=== PATIENT | female | born 1995 | race Two or more races ===

== ENCOUNTER → 2024-10-09 | Outpatient (CLI) | payer OTHER ==
[2024-10-09 10:59] LABS: Basophils # (auto) 0 10 ^3/uL (0-0.2); Basophils % (auto) 0.8 % (0.0-2.0); Eosinophils # (auto) 0.2 10 ^3/uL (0-0.8); Eosinophils % (auto) 2.6 % (0.0-7.0); Hematocrit 40.8 % (36.0-46.0); Lymphocytes # (auto) 1.7 10 ^3/uL (0.4-5.4); Mean Corpuscular Hemoglobin 29.1 pg (28.0-32.0); Mean Corpuscular Hgb Conc. 34.2 g/dL (32.0-36.0); Mean Corpuscular Volume 85.1 fL (80.0-100.0); Monocytes # (auto) 0.5 10 ^3/uL (0-1.3); Monocytes % (auto) 8.7 % (0.0-12.0); Neutrophils # (auto) 3.7 10 ^3/uL (1.6-8.6); Neutrophils % (auto) 59.9 % (37.0-80.0); Platelet Count (auto) 306 10^3/uL (140-450); Red Blood Cells 4.79 10^6/uL (4.0-5.20); Red Cell Distribution Width 12.7 % (11.8-14.3); White Blood Cell 6.1 10^3/uL (4.4-10.8)
[2024-10-09 11:32] LABS: Alanine Aminotransferase 23 U/L (7-40); Anion Gap 8 (5-15); Aspartate Aminotransferase 17 U/L (13-40); BUN/Creatinine Ratio 11.1 (10.0-20.0); Bilirubin, Total 0.7 mg/dL (0.2-1.0); Calcium 9.9 mg/dL (8.7-10.4); Carbon Dioxide 25 mmol/L (20-31); Chloride 104 mmol/L (98-107); Glucose 85 mg/dL (74-106); Potassium 3.7 mmol/L (3.5-5.1); Sodium 137 mmol/L (136-145)
[2024-10-09 11:33] LABS: Total Protein 7.4 g/dL (5.7-8.2)
[2024-10-09 11:35] LABS: Thyroid Stimulating Hormone 1.39 uIU/mL (0.55-4.78)
[2024-10-09 11:43] LABS: Beta HCG, Quantitative 3466.2 mIU/mL (1.5-4.2)
[2024-10-09 11:44] LABS: Albumin 4.9 g/dL (3.2-4.8); Alkaline Phosphatase 44 U/L (46-116); Blood Urea Nitrogen 8 mg/dL (9-23)
== END | disposition home or self-care (01) ==
LOC: LAB 10:35
PROVIDERS: ATTEND Nurse Practitioner Family
DX: Z32.01 Encounter for pregnancy test, result positive (principal)
CPT/HCPCS: 36415; 80053; 84443; 84702; 85025

== ENCOUNTER → 2024-12-11 | Outpatient (CLI) | payer OTHER ==
[2024-12-11 13:59] LABS: Iron 92 ug/dL (50-170)
[2024-12-11 14:02] LABS: % Iron Saturation 22.8 % (15-50); Total Iron Binding Capacity 403 ug/dL (250-425)
[2024-12-11 14:28] LABS: RUBELLA Positive
[2024-12-12 11:07] LABS: Varicella Zoster IgG Antibody Reactive (Non Reactive)
[2024-12-12 13:07] LABS: Chlamydia Trachomatis, NAA Negative (Negative); Neisseria gonorrhoeae, NAA Negative (Negative)
== END | disposition home or self-care (01) ==
LOC: LAB 12:56
PROVIDERS: ATTEND Student in an Organized Health Care Education/Training Program
DX: O23.40 Unspecified infection of urinary tract in pregnancy, unspecified trimester (principal); Z31.430 Encounter of female for testing for genetic disease carrier status for procreative management; Z36.0 Encounter for antenatal screening for chromosomal anomalies; N39.0 Urinary tract infection, site not specified; Z3A.00 Weeks of gestation of pregnancy not specified
CPT/HCPCS: 36415; 82306; 82728; 83036; 83540; 83550; 86703; 86705; 86762; 86780; 86787; 86850; 86900; 86901; 87086; 87902

== ENCOUNTER 2025-02-13 11:25 | Outpatient (CLI) | payer OTHER | END 2025-02-13 17:00 | disposition home or self-care (01) | LOC: LAB 11:25 | PROVIDERS: ATTEND Obstetrics & Gynecology | DX: Z34.00 Encounter for supervision of normal first pregnancy, unspecified trimester (principal); R76.8 Other specified abnormal immunological findings in serum; Z3A.00 Weeks of gestation of pregnancy not specified | CPT/HCPCS: 36415; 86780 ==

== ENCOUNTER 2025-06-07 10:52 | Observation (INO) | payer OTHER ==
[2025-06-07] MEDS ORDERED: PREN-96 PO (12:15)
--- NOTE | 2025-06-07 12:34 | DVH ---
BIOPHYSICAL PROFILE HISTORY: Term TECHNIQUE: Multiple real-time grayscale sonographic images through the gravid uterus of the fetus wi th duplex Doppler color flow. FINDINGS: BIOPHYSICAL PROFILE: breathing score: 2 movement score: 2 tone score: 2 Quantitative KVNG score: 2 Total score: 8 out of 8 Single live intrauterine . heart rate of 127 beats per minute. Cephalic lie. Placent a anteriorly positioned. KVNG 9.2 cm. IMPRESSION: Biophysical profile score: 8 out of 8
--- NOTE | 2025-06-07 16:29 | DVHDS2 ---
Discharge Summary Date of Admission Jun 07, 2025 at 10:52 Date of Discharge: Jun 07, 2025 Admitting Diagnosis 40+ week intrauterine here for routine monitoring and biophysical profile both performed with reassuring heart tones as well as BPP. Wounds: None Labs/Diagnostic Data: None Brief Hx & Hospital Course: Patient had BPP NST very reassuring Operations or Procedures None Condition at Discharge: Good Final Diagnosis/Problems List 40 week intrauterine reassuring Discharge Disposition: Home SNF Discharge Will this Physician continue t: No Discharge Instruct/Medications Diet: Regular Activity: No Restrictions, As Tolerated Follow Up/Referral: As scheduled for routine NST BPP kick counts labor precautions Medications: None Scheduled Vit W/ Ferrous Fumara ( One Daily), 1 TAB PO DAILY, (Reported) Discharge Statement: "Patient was advised to return to the ER or call 911 if any headaches, dizziness, shortness of breath, chest pain, abdominal pain, bleeding, fevers, or worsening of medical condition. Patient was counseled about treatment plan, medications, possible side effects, patientverbalized understanding. All questions were answered to the best of my ability. This discharge took greater then 30 minutes in planning, reviewing documentation, counseling the patient, and discussing with other team members." ASSESSMENT ASSESSMENT Assessment Visit Coding OBGYN Date of Service: Jun 07, 2025 Billing Provider: MIRTHA MCGEE DO MANAGER WAREHOUSE Common Visit Codes: 94742-INE/OBS SAME DATE (MOD), 90566-ELJ/OBS SAME DATE (HIGH) MANAGER WAREHOUSE Procedure Codes: 36667-71- NON-STRESS TEST MIRTHA MCGEE DO Jun 07, 2025 16:29
== END 2025-06-07 12:38 | disposition home or self-care (01) ==
LOC: LDRP 10:52
PROVIDERS: ADMIT Obstetrics & Gynecology; ATTEND Obstetrics & Gynecology
DX: O48.0 Post-term pregnancy (principal); Z3A.40 40 weeks gestation of pregnancy; Z98.890 Other specified postprocedural states
CPT/HCPCS: 76818; 81002; 94760; G0378; 59025; 76819

== ENCOUNTER 2025-06-09 09:55 | Observation (INO) | payer OTHER ==
[~2025-06-09 09:55] MED LIST: PREN-96 PO
--- NOTE | 2025-06-09 10:43 | DVH ---
BIOPHYSICAL PROFILE HISTORY: post dates TECHNIQUE: Multiple transabdominal real-time grayscale sonographic images through the gravid uterus o f the fetus with duplex doppler color flow and M-mode spectral analysis FINDINGS: BIOPHYSICAL PROFILE: breathing score: 2 movement score: 2 tone score: 2 Quantitative KVNG score: 2 (KVNG: 7.3 cm.) Total score: 8/8 Single live fetus in cephalic presentation. heart rate 137 beats per minute. Anterior placenta without previa or abruption Biophysical profile score 8/8 corresponding to an WILLIAM of 06/07/25 IMPRESSION: Biophysical profile score: 8/8
== END 2025-06-09 12:02 | disposition home or self-care (01) ==
LOC: LDRP 09:55
PROVIDERS: ADMIT Obstetrics & Gynecology; ATTEND Obstetrics & Gynecology
DX: O48.0 Post-term pregnancy (principal); Z3A.40 40 weeks gestation of pregnancy; Z98.890 Other specified postprocedural states
CPT/HCPCS: 76818; 81002; G0378; 59025; 76819

== ENCOUNTER 2025-06-10 16:02 | Inpatient (IN) | payer OTHER ==
[~2025-06-10] VITALS: Ht 170.2 cm; Wt 68.0 kg
[2025-06-10] MEDS ORDERED: LIDOCAINE 2%HCL (LOCAL ANESTH.) INJ 20ML MDV IJ PRN (16:15)
[2025-06-10] MEDS ORDERED: BUTORPHANOL TARTRATE 2 MG/1 ML VIAL IV PRN ×2 (16:15)
[2025-06-10 16:44] LABS: Hematocrit 38.3 % (36.0-46.0); Hemoglobin 13.0 g/dL (12.2-16.2); Mean Corpuscular Hemoglobin 28.2 pg (28.0-32.0); Mean Corpuscular Volume 83.3 fL (80.0-100.0); Nucleated Red Blood Cells % 0.0 %
[2025-06-10] MEDS: LACTATED RINGER'S 1,000 ML IV SCH (16:44)
[2025-06-10 16:52] LABS: Urine Protein, UAD Negative (Negative)
[2025-06-10 16:58] LABS: Alanine Aminotransferase 18 U/L (7-40); Albumin 4.1 g/dL (3.2-4.8); Anion Gap 11 (5-15); BUN/Creatinine Ratio 12.3 (10.0-20.0); Bilirubin, Total 0.4 mg/dL (0.2-1.0); Calcium 8.9 mg/dL (8.7-10.4); Carbon Dioxide 22 mmol/L (20-31); Chloride 105 mmol/L (98-107); Potassium 3.9 mmol/L (3.5-5.1); Sodium 138 mmol/L (136-145); Total Protein 7.1 g/dL (5.7-8.2)
[2025-06-10] MEDS: WITCH HAZEL-GLYCERIN PAD TOP PRN (16:58)
[2025-06-10] MEDS: PHISODERM TOP SOLN 240ML BTL TOP PRN (16:58)
[2025-06-10] MEDS: DERMOPLAST 60ML BOTTLE TOP PRN (16:58)
[2025-06-10 16:59] LABS: INR 0.91 (0.9-1.15); Partial Thromboplastin Time 27.8 SEC (24.5-34.5); Prothrombin Time 9.7 sec (9.3-11.8)
[2025-06-10 17:00] LABS: Alkaline Phosphatase 131 U/L (46-116); Blood Urea Nitrogen 8 mg/dL (9-23); Glucose 68 mg/dL (74-106)
--- NOTE | 2025-06-10 17:35 | DVHHP2 ---
OB CC & HPI Date Date of Admission: Jun 10, 2025 Patient Identification: : 1 Para: 0 EDC: Jun 07, 2025 EGA: 40.3wks Chief Complaints: Reason for admission: induction of labor Indication for induction: other (macrosomia/term) History of Present Complaints 29yo IUP@40.3wks presents for scheduled IOL for macrosomia/term . Denies UCs/LOF/VB/PATEL/vision changes/RUQ pain. Endorses +FM. Routine PNC at [facility] with Pina Cherry CNM, adequate visits, PNC uncomplicated. GTT wnl, dating based 14wk sono not c/w LMP, GBS positive. Past Medical History Cardiac: No pertinent Hx Pulmonary: No pertinent Hx Central Nervous System: No pertinent Hx GI: No pertinent Hx Hemotology/Oncology: No pertinent Hx Hepatobiliary: No pertinent Hx Psychiatric: No pertinent Hx Musculoskeletal: No pertinent Hx Rheumotologic: No pertinent Hx Infectious Disease: No peritnent Hx ENT: No pertinent Hx Renal/: No pertinent Hx Endocrine: No pertinent Hx Dermatology: No pertinent Hx Past Surgical History: Other (scoliosis surgery where metal rods were placed to straighten spine, pt does not remember the name of the surgery (2007)) OB History OB History Care: Good Care Ultrasounds: Normal mid trimester US Obstetrical Complications: None Medical Complications: None Allergies: Coded Allergies: NO KNOWN ALLERGIES (Unverified , 06/10/25) Home Meds Reported Medications Vit W/ Ferrous Fumara ( One Daily) Daily Tab, 1 TAB PO DAILY, #90 TAB 3 Refills 06/07/25 Current Medications Current Medications Medications (Trade) Dose Ordered Sig/Angie Route PRN Reason Start Time Stop Time Status Last Admin Lactated Ringer's 1,000 ml @ 125 mls/hr Q8H IV 06/10/25 16:15 06/10/25 16:44 Penicillin G Potassium [id number] units/Dextrose 50 ml @ 100 mls/hr Q4H IV 06/10/25 20:15 Witch Catalina (Tucks) 1 pad PRN PRN TOP PERINEAL AREA DISCOMFORT 06/10/25 16:15 06/10/25 16:58 Sodium Lauryl Sulfate (Phisoderm) 240 ml PRN PRN TOP PERINEAL AREA DISCOMFORT 06/10/25 16:15 06/10/25 16:58 Benzocaine (Dermoplast) 1 applic PRN PRN TOP PERINEAL AREA DISCOMFORT 06/10/25 16:15 06/10/25 16:58 Butorphanol Tartrate (Stadol Injection) 1 mg Q4HPRN PRN IV MODERATE PAIN (4-6 PAIN SCALE) 06/10/25 16:15 Butorphanol Tartrate (Stadol Injection) 2 mg Q4HPRN PRN IV SEVERE PAIN (7-10 PAIN SCALE) 06/10/25 16:15 Misoprostol (Cytotec) 50 mcg Q4HPRN PRN PO CERVICAL RIPENING 06/10/25 16:15 06/10/25 17:30 Lidocaine HCl (Xylocaine) 20 ml ONCE PRN IJ PERINEAL AREA DISCOMFORT 06/10/25 16:15 Family & Social History Family/Social History Past Family/Social History: denies Blood Type: B+ Rubella: immune RPR/VDRL: Negative GBS Status: Positive HBsAG: Negative Review of Systems Constitutional: No symptom reported Ears, Nose, & Throat: No symptom reported Eyes: No symptom reported Pulmonary/Respiratory: No symptom reported Cardiovascular: No symptom reported Gastrointestinal: No symptom reported Genitourinary: No symptom reported Musculoskeletal: No symptom reported Skin: No symptom reported Psychiatric: No symptom reported Endocrine: No symptom reported Hemotologic/Lymphatic: No symptom reported OB Admission Exam Physical Exam Vitals: VSS, see CPN EFW 9lbs 5oz, vertex in office today HEENT: TMs Normal, Fontanelles Normal, Nasal Mucosa Normal, Eyes non-injected, Oropharynx Normal, PERRLA, Moist Membranes, EOMI Heart: Rhythm Normal Lungs: Clear Abdomen: Gravid Extremities: Normal Reflexes: Normal Pelvic Exam: SVE by RN: 50/-2 Heart Rate: 130's Accelerations: Accelerations Present Decelerations: No Decelerations Residential Variability: Average (6-25) Frequency of Contractions: q4-5 Intensity: Mild OB Plan Plan Admitting Diagnosis: Induction of labor for macrosomia/term Plan: Induction Induction Methd: Misoprostol protocol Other Plan: A: 29yo IUP@40.3wks Induction of Labor for macrosomia/term Category I EFM Intact Membranes GBS positive P: Admit to L&D Informed consent obtained Discussed risks of shoulder dystocia to mother and baby, primary section offered. Pt verbalized understanding, pt declines primary and wants to proceed with IOL for vagina delivery. Discussed risks, benefits, alternatives of IOL for macrosomia/term with pt. Pt consents to IOL with PO cytotec. Start IV PCN for GBS treatment when pt is in active labor or ROM. monitoring per order Routine labs ordered Pain mgmt PRN Frequent position changes in and out of bed encouraged Limit SVE unless necessary Intrauterine resuscitation PRN Anticipate CNLuh will consult with Dr. Disla PRN Visit Coding OBGYN Date of Service: Jun 10, 2025 Billing Provider: MARY CHERRY CNM STATISTICIAN APPLIED Common Visit Codes: [id number] INP/OBS CARE(HIGH) STATISTICIAN APPLIED Procedure Codes: 62799-10- NON-STRESS TEST MARY CHERRY CNM Jun 10, 2025 17:35
[2025-06-10 17:36] LABS: Amphetamine Screen, Urine Neg (NEGATIVE); Barbiturate Scree,Urine Neg (NEGATIVE); Benzodiazephine Screen, Urine Neg (NEGATIVE); Cannabinoid Screen, Urine Neg (NEGATIVE); Cocaine Screen, Urine Neg (NEGATIVE); Opiate Scree,Urine Neg (NEGATIVE); Phencyclidine Screen, Urine Neg (NEGATIVE)
--- NOTE | 2025-06-10 22:03 | DVHPN2 ---
CNM Labor Progress Note Date and Time Seen Date Seen: Jun 10, 2025 Time Seen: 21:50 Subjective Patient reports: No new complaints Subjective Comment Pt agrees to CRB after discussion. Objective Vital Signs VSS, see CPN Monitoring Method Monitoring Method: External Heart Rate Heart Rate Baseline: 130 Heart Rate Variability: Moderate Presence of FHR Accelerations: Yes Presence of FHR Decelerations: No Are all 5 Components of the FH: Yes Contractions Contractions Frequency: Other (q2-5 min) Duration of Contraction: 80 Contractions Intensity: Moderate Contractions Resting Tone: Relaxed Membranes Membranes: Intact Vaginal Exam Vag Exam Deferred: No (./-1, cooks CRB placed with only 80ml sterile fluid in uterine balloon) Vaginal Exam Presentation: VTX Vaginal Exam Show: Small Medications Medications - Pitocin: No Medications - Pain Medications: PRN Medication - Epidural: No Medication - Other s/p 2 doses of cytotec Lab Results Lab Results Current Medications Medications (Trade) Dose Ordered Sig/Angie Start Time Stop Time Status Last Admin Dose Admin Lactated Ringer's 1,000 ml @ 125 mls/hr Q8H 06/10/25 16:15 06/10/25 16:44 125 MLS/HR Penicillin G Potassium 50 ml @ 100 mls/hr ONCE ONCE 06/10/25 16:15 06/10/25 16:44 DC Penicillin G Potassium [id number] units/Dextrose 50 ml @ 100 mls/hr Q4H 06/10/25 20:15 Rebeca Arnold (Tucks) 1 pad PRN PRN 06/10/25 16:15 06/10/25 16:58 1 PAD Sodium Lauryl Sulfate (Phisoderm) 240 ml PRN PRN 06/10/25 16:15 06/10/25 16:58 240 ML Benzocaine (Dermoplast) 1 applic PRN PRN 06/10/25 16:15 06/10/25 16:58 1 APPLIC Butorphanol Tartrate (Stadol Injection) 1 mg Q4HPRN PRN 06/10/25 16:15 Butorphanol Tartrate (Stadol Injection) 2 mg Q4HPRN PRN 06/10/25 16:15 Misoprostol (Cytotec) 50 mcg Q4HPRN PRN 06/10/25 16:15 06/10/25 21:32 50 MCG Lidocaine HCl (Xylocaine) 20 ml ONCE PRN 06/10/25 16:15 Oxytocin 500 ml @ 999 mls/hr Q31M ONCE 06/10/25 16:15 06/10/25 16:45 DC Oxytocin 500 ml @ 125 mls/hr Q4H ONCE 06/10/25 16:45 06/10/25 20:44 DC Laboratory Tests Test 06/10/25 16:42 06/10/25 16:26 06/10/25 16:09 Range/Units Urine Opiates Screen Neg NEGATIVE Urine Fentanyl Screen Neg NEGATIVE Urine Barbiturates Screen Neg NEGATIVE Urine Phencyclidine Screen Neg NEGATIVE Urine Amphetamines Screen Neg NEGATIVE Urine Benzodiazepines Screen Neg NEGATIVE Urine Cocaine Screen Neg NEGATIVE Urine Cannabinoids Screen Neg NEGATIVE White Blood Count 9.6 4.4-10.8 10^3/uL Red Blood Count 4.60 4.0-5.20 10^6/uL Hemoglobin 13.0 12.2-16.2 g/dL Hematocrit 38.3 36.0-46.0 % Mean Corpuscular Volume 83.3 80.0-100.0 fL Mean Corpuscular Hemoglobin 28.2 28.0-32.0 pg Mean Corpuscular Hemoglobin Concent 33.8 32.0-36.0 g/dL Red Cell Distribution Width 14.0 11.8-14.3 % Platelet Count 324 140-450 10^3/uL Mean Platelet Volume 7.6 6.9-10.8 fL Neutrophils (%) (Auto) 72.7 37.0-80.0 % Lymphocytes (%) (Auto) 17.2 10.0-50.0 % Monocytes (%) (Auto) 6.9 0.0-12.0 % Eosinophils (%) (Auto) 2.9 0.0-7.0 % Basophils (%) (Auto) 0.3 0.0-2.0 % Neutrophils # (Auto) 7.0 1.6-8.6 10 ^3/uL Lymphocytes # (Auto) 1.6 0.4-5.4 10 ^3/uL Monocytes # (Auto) 0.7 0-1.3 10 ^3/uL Eosinophils # (Auto) 0.3 0-0.8 10 ^3/uL Basophils # (Auto) 0 0-0.2 10 ^3/uL Nucleated Red Blood Cells 0.0 % Prothrombin Time 9.7 9.3-11.8 sec Prothrombin Time INR 0.91 0.9-1.15 Activated Partial Thromboplast Time 27.8 24.5-34.5 SEC Sodium Level 138 136-145 mmol/L Potassium Level 3.9 3.5-5.1 mmol/L Chloride Level 105 98-107 mmol/L Carbon Dioxide Level 22 20-31 mmol/L Anion Gap 11 5-15 Blood Urea Nitrogen 8 L 9-23 mg/dL Creatinine 0.65 0.550-1.02 mg/dL Glomerular Filtration Rate Calc 122 >90 mL/min BUN/Creatinine Ratio 12.3 10.0-20.0 Serum Glucose 68 L 74-106 mg/dL Calcium Level 8.9 8.7-10.4 mg/dL Total Bilirubin 0.4 0.2-1.0 mg/dL Aspartate Amino Transferase (AST) 22 13-40 U/L Alanine Aminotransferase (ALT) 18 7-40 U/L Alkaline Phosphatase 131 H 46-116 U/L Total Protein 7.1 5.7-8.2 g/dL Albumin 4.1 3.2-4.8 g/dL Treponema pallidum Antibody Non-reactive Negative Hepatitis C Antibody Negative Negative Urine Color Colorless Yellow Urine Clarity Clear Clear Urine pH 6.0 5.0-9.0 Urine Specific [place] 1.005 1.001-1.035 Urine Protein Negative Negative Urine Ketones 1+ H Negative Urine Blood Negative Negative /uL Urine Nitrite Negative Negative Urine Bilirubin Negative Negative Urine Urobilinogen Normal Negative mg/dL Urine Leukocyte Esterase Trace Negative /uL Urine RBC 1 0 - 4 /hpf Urine Microscopic WBC 5 0-5 /HPF Urine Squamous Epithelial Cells Few <5 /hpf Urine Bacteria Few H None Seen /hpf Urine Sperm Present None Seen /hpf Urine Glucose Normal Normal mg/dL Assessment Assessment A: 29yo IUP@40.3wks Induction of Labor for macrosomia/term Category I EFM Intact Membranes GBS positive Plan Plan P: Plan to keep CRB in for 12 hours or it falls out on its own or we remove it early due to ROM. Will inflate vaginal balloon 4 hours after last dose of cytotec with 80ml sterile fluid. RN to apply traction q1hr. Start IV PCN for GBS treatment when pt is in active labor or ROM. monitoring per order Pain mgmt PRN Frequent position changes in and out of bed encouraged Limit SVE unless necessary Intrauterine resuscitation PRN Anticipate CNM will consult with Dr. Disla PRN Plan discussed with: Patient, Spouse, Other (family) Visit Coding OBGYN Date of Service: Jun 10, 2025 Billing Provider: MARY SAINZ CNM PROSTHETIC MAKEUP DESIGNER Common Visit Codes: [id number] INP/OBS CARE(HIGH) MARY SAINZ CNM Jun 10, 2025 22:02
[2025-06-11] MEDS ORDERED: NALBUPHINE HCL 10 MG/1ml INJECTION IV PRN (02:45)
[2025-06-11] MEDS: ONDANSETRON HCL 4 MG/2 ML VIAL IV PRN (08:03)
[2025-06-11] MEDS: ROPIVACAINE HCL 100 ML ONE (10:39)
[2025-06-11] MEDS: PENICILLIN G POT 5MIL/D5 50ML 50 ML IV ONE (11:32)
[2025-06-11] MEDS: LACT. RINGERS/OXYTOCIN 20UNITS 1,000 ML IV SCH (12:03)
[2025-06-11] MEDS: PENICILLIN G POTASSIUM 2,500,000 UNITS in D5W 5% 50 ML IV SCH (15:35)
--- NOTE | 2025-06-11 16:03 | DVHPN2 ---
OB Labor Progress Note Date and Time Seen Date Seen: Jun 11, 2025 Time Seen: 03:45 Subjective Patient reports: No new complaints Subjective Comment Pt feels comfortable with epidural, denies pain or pressure. Objective Vital Signs VSS, see CPN Monitoring Method Monitoring Method: External Heart Rate Heart Rate Baseline: 140 Heart Rate Variability: Moderate Presence of FHR Accelerations: Yes Presence of FHR Decelerations: No Are all 5 Components of the FH: Yes Contractions Contractions Frequency: Occasional (every 2 min) Duration of Contraction: 70 Contractions Intensity: Moderate Contractions Resting Tone: Relaxed Membranes Membranes: Ruptured Amniotic Fluid Color: Clear Vaginal Exam Vag Exam Deferred: Yes (SVE by RN, no amniotic sac palpated on head by RN, +nitrazine with fluid on chux pad) Vaginal Exam Dilation: 4 Vaginal Exam Effacement: 90 Vaginal Exam Station: -2 Vaginal Exam Presentation: VTX Medications Medications - Pitocin: Yes Medication - Epidural: Yes Medication - Other s/p PO cytotec x 3, cooks balloon Lab Results Lab Results Current Medications Medications (Trade) Dose Ordered Sig/Angie Start Time Stop Time Status Last Admin Dose Admin Lactated Ringer's 1,000 ml @ 125 mls/hr Q8H 06/10/25 16:15 06/10/25 16:44 125 MLS/HR Penicillin G Potassium 50 ml @ 100 mls/hr ONCE ONCE 06/10/25 16:15 06/10/25 16:44 DC 06/11/25 11:32 100 MLS/HR Penicillin G Potassium [id number] units/Dextrose 50 ml @ 100 mls/hr Q4H 06/10/25 20:15 06/11/25 15:35 100 MLS/HR Rebeca Arnold (Tucks) 1 pad PRN PRN 06/10/25 16:15 06/10/25 16:58 1 PAD Sodium Lauryl Sulfate (Phisoderm) 240 ml PRN PRN 06/10/25 16:15 06/10/25 16:58 240 ML Benzocaine (Dermoplast) 1 applic PRN PRN 06/10/25 16:15 06/10/25 16:58 1 APPLIC Butorphanol Tartrate (Stadol Injection) 1 mg Q4HPRN PRN 06/10/25 16:15 06/11/25 02:41 DC Butorphanol Tartrate (Stadol Injection) 2 mg Q4HPRN PRN 06/10/25 16:15 06/11/25 02:41 DC Misoprostol (Cytotec) 50 mcg Q4HPRN PRN 06/10/25 16:15 06/11/25 02:30 50 MCG Lidocaine HCl (Xylocaine) 20 ml ONCE PRN 06/10/25 16:15 Oxytocin 500 ml @ 999 mls/hr Q31M ONCE 06/10/25 16:15 06/10/25 16:45 DC Oxytocin 500 ml @ 125 mls/hr Q4H ONCE 06/10/25 16:45 06/10/25 20:44 DC Nalbuphine HCl (Nubain) 10 mg Q4HP PRN 06/11/25 02:45 Ondansetron HCl (Zofran) 4 mg Q4HPRN PRN 06/11/25 07:15 06/11/25 08:03 4 MG Naloxone HCl (Narcan) 0.2 mg PRN ONCE 06/11/25 09:15 06/11/25 09:34 DC Ephedrine Sulfate (ePHEDrine SULFATE) 10 mg PRN ONCE 06/11/25 09:15 06/11/25 09:32 DC Oxytocin 1,000 ml @ 6 ml/hr Q24H 06/11/25 11:45 06/11/25 12:03 6 ML/HR Laboratory Tests Test 06/10/25 16:42 06/10/25 16:26 06/10/25 16:09 Range/Units Urine Opiates Screen Neg NEGATIVE Urine Fentanyl Screen Neg NEGATIVE Urine Barbiturates Screen Neg NEGATIVE Urine Phencyclidine Screen Neg NEGATIVE Urine Amphetamines Screen Neg NEGATIVE Urine Benzodiazepines Screen Neg NEGATIVE Urine Cocaine Screen Neg NEGATIVE Urine Cannabinoids Screen Neg NEGATIVE White Blood Count 9.6 4.4-10.8 10^3/uL Red Blood Count 4.60 4.0-5.20 10^6/uL Hemoglobin 13.0 12.2-16.2 g/dL Hematocrit 38.3 36.0-46.0 % Mean Corpuscular Volume 83.3 80.0-100.0 fL Mean Corpuscular Hemoglobin 28.2 28.0-32.0 pg Mean Corpuscular Hemoglobin Concent 33.8 32.0-36.0 g/dL Red Cell Distribution Width 14.0 11.8-14.3 % Platelet Count 324 140-450 10^3/uL Mean Platelet Volume 7.6 6.9-10.8 fL Neutrophils (%) (Auto) 72.7 37.0-80.0 % Lymphocytes (%) (Auto) 17.2 10.0-50.0 % Monocytes (%) (Auto) 6.9 0.0-12.0 % Eosinophils (%) (Auto) 2.9 0.0-7.0 % Basophils (%) (Auto) 0.3 0.0-2.0 % Neutrophils # (Auto) 7.0 1.6-8.6 10 ^3/uL Lymphocytes # (Auto) 1.6 0.4-5.4 10 ^3/uL Monocytes # (Auto) 0.7 0-1.3 10 ^3/uL Eosinophils # (Auto) 0.3 0-0.8 10 ^3/uL Basophils # (Auto) 0 0-0.2 10 ^3/uL Nucleated Red Blood Cells 0.0 % Prothrombin Time 9.7 9.3-11.8 sec Prothrombin Time INR 0.91 0.9-1.15 Activated Partial Thromboplast Time 27.8 24.5-34.5 SEC Sodium Level 138 136-145 mmol/L Potassium Level 3.9 3.5-5.1 mmol/L Chloride Level 105 98-107 mmol/L Carbon Dioxide Level 22 20-31 mmol/L Anion Gap 11 5-15 Blood Urea Nitrogen 8 L 9-23 mg/dL Creatinine 0.65 0.550-1.02 mg/dL Glomerular Filtration Rate Calc 122 >90 mL/min BUN/Creatinine Ratio 12.3 10.0-20.0 Serum Glucose 68 L 74-106 mg/dL Calcium Level 8.9 8.7-10.4 mg/dL Total Bilirubin 0.4 0.2-1.0 mg/dL Aspartate Amino Transferase (AST) 22 13-40 U/L Alanine Aminotransferase (ALT) 18 7-40 U/L Alkaline Phosphatase 131 H 46-116 U/L Total Protein 7.1 5.7-8.2 g/dL Albumin 4.1 3.2-4.8 g/dL Treponema pallidum Antibody Non-reactive Negative Hepatitis C Antibody Negative Negative Urine Color Colorless Yellow Urine Clarity Clear Clear Urine pH 6.0 5.0-9.0 Urine Specific [place] 1.005 1.001-1.035 Urine Protein Negative Negative Urine Ketones 1+ H Negative Urine Blood Negative Negative /uL Urine Nitrite Negative Negative Urine Bilirubin Negative Negative Urine Urobilinogen Normal Negative mg/dL Urine Leukocyte Esterase Trace Negative /uL Urine RBC 1 0 - 4 /hpf Urine Microscopic WBC 5 0-5 /HPF Urine Squamous Epithelial Cells Few <5 /hpf Urine Bacteria Few H None Seen /hpf Urine Sperm Present None Seen /hpf Urine Glucose Normal Normal mg/dL Assessment Assessment A: 29yo IUP@40.4wks Induction of Labor for macrosomia/term Category I EFM SROM, clear fluid GBS positive Plan Plan P: Continue Pitocin per protocol Continue with IV PCN for GBS treatment monitoring per order Pain mgmt - epidural in place Frequent position changes in bed encouraged Limit SVE unless necessary Intrauterine resuscitation PRN Anticipate CNM will consult with Dr Disla PRN Plan discussed with: Patient, Spouse, Other (family) Visit Coding OBGYN Date of Service: Jun 11, 2025 Billing Provider: MARY SAINZ CNM GEAR LAPPING MACHINE OPERATOR Common Visit Codes: [id number] INP/OBS CARE(MOD) REYES COATES Jun 11, 2025 16:03
--- NOTE | 2025-06-11 16:28 | DVHHP ---
This is a note stating the patient was admitted by clinical trials systems administrator Madhav for induction. The patient finally agreed to induction, but wanted to be managed by the clinical trials systems administrator. Her estimated weight was 9.5 pounds. She is a primi. I advised Madhav to discuss the possibility of shoulder dystocia and option of primary , which she did. The patient was fully counseled regarding the possibility of shoulder dystocia, damage to the baby, short-term as well as long-term morbidity and mortality and Erb's palsy and other morbidities associated with macrosomia; however, the patient was adamant about proceeding with vaginal delivery. The patient is being managed by clinical trials systems administrator Madhav as the patient desires to be as natural as possible. The patient is fully informed and continues with her trial of vaginal delivery and management by Madhav. DO ARIANA Arizmendi/JOJO TID: [id number] RECEIPT: [id number]
[2025-06-11] MEDS ORDERED: ONDANSETRON HCL 4 MG/2 ML VIAL IV PRN (21:00)
[2025-06-11] MEDS ORDERED: CEPH250C PO (22:06)
[2025-06-11] MEDS ORDERED: PREN-96 PO (22:06)
[2025-06-11] MEDS ORDERED: IBUP-1455 PO (22:06)
[2025-06-11] MEDS ORDERED: DOCU-265 PO (22:06)
[2025-06-11] MEDS: ceFAZolin 2 GM/D5W50ml 50 ML IV SCH (22:10)
--- NOTE | 2025-06-11 22:11 | LDN2 ---
Labor and Delivery Note Date 06/11/25 Age 29 1 Para 1 AB 0 EDC 06/07/25 EGA 40.4wk Diagnosis IOL for postdates Vaginal Delivery: VTX Vacuum Assisted: No Placenta: Spontaneous Sex: Female Weight pending Apgars 8/9 Nuchal Cord Transected: No Amniotic Fluid: Clear Anesthesia epidural Episiotomy: Yes Extension: Yes (4th degree lac) Repaired with 3-0 vicryl x 4 EBL 500 ml Labs Laboratory Tests 12/11/24 12:39: HIV (1&2) Antibody Negative, Rubella Antibody Positive Blood Bank 06/10/25 16:26: Blood Type B POSITIVE Complications none Conditions stable Manager Drive [place] Comments/Significant [facility] [place] At 2030 this 29yo now delivered a viable Female infant by w/ APGARS 8/9. Midline episiotomy performed due to inadequate space for after several attempts with perineal massage and modified ritgen maneuver. Pt consented to MLE. handed to mom/RN team. GERARDO. Dr. Disla called to bedside to assess perineum. Intact 3-vessel cord placenta delivered spontaneously, [place]. Cord clamped and cut after 7 minute delay. Cord blood not sent, maternal blood type B+. Patient had epidural anesthesia. Cervix/vagina inspected and MLE extended to fourth degree perineal laceration which was repaired with 3- [address] Disla. VSS. Fundus firm at U-1, midline, light lochia. QBL 500ml. Rectum exam done, WNL. Ancef 2g IV q8hrs x 3 doses ordered. Patient to care and baby to couplet care. Visit Coding OBGYN Date of Service: Jun 11, 2025 Billing Provider: MARY SAINZ CNM MANAGER PROPOSAL Common Visit Codes: PROCEDURE ONLY MANAGER PROPOSAL Procedure Codes: [id number] DEL INCLUDING REYES COATES Jun 11, 2025 22:11
[2025-06-11] MEDS: IBUPROFEN 800 MG TAB PO SCH (23:23)
[2025-06-11] MEDS: DOCUSATE SOD 100 MG CAP PO SCH (23:23)
--- NOTE | 2025-06-12 00:17 | DVHPN2 ---
Progress Note Date Seen: Jun 12, 2025 Subjective S: bleeding is less, eating food without issues, denies lightheaded/dizziness, pain well controlled with oral medications, due to void, no flatus/BM yet, ambulating well, well vital signs VSS, see CPN medications Current Medications Medications Dose Ordered Sig/Angie Route Start Time Stop Time Status Last Admin Dose Admin Rebeca Catalina 1 pad PRN PRN TOP 06/10/25 16:15 06/10/25 16:58 1 PAD Sodium Lauryl Sulfate 240 ml PRN PRN TOP 06/10/25 16:15 06/10/25 16:58 240 ML Benzocaine 1 applic PRN PRN TOP 06/10/25 16:15 06/10/25 16:58 1 APPLIC Acetaminophen 650 mg Q4HP PRN PO 06/11/25 21:00 Ondansetron HCl 4 mg Q4HP PRN IV 06/11/25 21:00 Docusate Sodium 200 mg HS PO 06/11/25 22:00 06/11/25 23:23 200 MG Ibuprofen 800 mg Q6HR PO 06/12/25 00:00 06/11/25 23:23 800 MG Cefazolin Sodium/ Dextrose 50 ml @ 50 mls/hr Q8HR IV 06/11/25 22:00 06/11/25 22:10 50 MLS/HR laboratory and microbiology Laboratory Tests 06/10/25 16:26 Test 06/10/25 16:26 Range/Units Serum Glucose 68 L 74-106 mg/dL Objective O: VSS Chest: heart sounds normal and lung sounds clear bilaterally Abd: soft, non-tender, fundus 1-U/firm/midline, active bowel sounds, no rebound or guarding Perineum: edema noted, ice pack present, sutures intact, edges well approximated, no erythema noted Ext: Non-tender, No edema, 2+ BLE DTRs Lochia: minimal See lab results Problems(with codes): (1) (normal spontaneous vaginal delivery) Assessment/Plan A: 29yo now PPD#1 s/p Midline episiotomy with 4th degree perineal extension P: Continue with routine PP care Continue with Ancef 2g IVPB q8hrs (3 doses total) Plan discussed with: Patient, Spouse, Other (family) Visit Coding OBGYN Date of Service: Jun 12, 2025 Billing Provider: MARY SAINZ CNM LAB TECHNICIAN Common Visit Codes: [id number] INP/OBS CARE(HIGH) MARY SAINZ CNM Jun 12, 2025 00:17
[2025-06-12] MEDS: ACETAMINOPHEN 325 MG TAB PO PRN (01:39)
[2025-06-12 03:30] VITALS: BP 122/60; PULSE 77; RESP 16; TEMP 98.7; O2SAT 99
[2025-06-12] MEDS: LACT. RINGERS/OXYTOCIN 20UNITS 500 ML IV ONE ×2 (05:19→05:22)
[2025-06-12 07:30] VITALS: BP 122/60; PULSE 83; RESP 16; TEMP 97.7; O2SAT 99
[2025-06-12 09:02] LABS: Hematocrit 33.8 % (36.0-46.0); Hemoglobin 11.2 g/dL (12.2-16.2); Mean Corpuscular Hemoglobin 27.8 pg (28.0-32.0); Mean Corpuscular Volume 83.6 fL (80.0-100.0); Nucleated Red Blood Cells % 0.1 %
[2025-06-12] MEDS: ROPIVACAINE HCL 100 ML ONE (09:57)
[2025-06-12] MEDS: NALOXONE HCL 0.4 MG/ML VIAL IV ONE (10:00)
[2025-06-12 11:00] VITALS: BP 120/66; PULSE 68; RESP 15; TEMP 97.9; O2SAT 98
[2025-06-12] MEDS ORDERED: TRANEXAMIC ACID 1,000 mg/10ml INJ VIAL IV ONE (12:37)
[2025-06-12 15:11] VITALS: BP 101/54; PULSE 57; RESP 16; TEMP 97.8; O2SAT 96
[2025-06-12 19:00] VITALS: BP 109/56; PULSE 72; RESP 20; TEMP 98.2; O2SAT 99
[2025-06-12] MEDS: PSYLLIUM PWD 5.8GM PKG PO SCH (22:04)
[2025-06-12 23:12] VITALS: BP 135/63; PULSE 64; RESP 18; TEMP 98.1; O2SAT 99
[2025-06-13 03:20] VITALS: BP 110/66; PULSE 63; RESP 17; TEMP 97.5; O2SAT 100
[2025-06-13 06:30] VITALS: BP 124/67; PULSE 59; RESP 18; TEMP 97.5; O2SAT 99
--- NOTE | 2025-06-13 07:23 | DVHDS2 ---
Obstetrics Discharge Summary Obstetrics Discharge Summary Date of Admission: Jun 10, 2025 Date of Discharge: Jun 13, 2025 Reason For Admission: Induction of Labor Intrapartum Procedures: Spontaneous vaginal deliv, Episiotomy Procedures: Antibiotics Operative Complicat: Laceration (4th degree Perineal) Discharge Diagnosis: Term -Delivered Discharge Information: Activity (Unrestricted. Advance as tolerated. Balance activities with rest periods. No heavy lifting, pushing or straining. Pelvic rest x 6 weeks), Diet (Routine regular diet rich in fiber, protein, iron and vitamin C with adequate fluid intake.), Medications (Ibuprofen 600mg every 6 hours as needed for pain. Colace 100mg twice a day and psyllium fiber to keep bowel movements soft and prevent constipation. Continue Vitamin and iron), Discharge to (Home), Accompanied by (partner), Discarge date (06/13/2025) Discharge Care Plan Instructions - self care instructions given - emergency signs and symptoms including but not limited to pre-eclampsia precautions and signs of infection, PPH & of PPD reviewed with patient. -Follow up with OB Provider in 2 weeks and again at 6 weeks Visit Coding OBGYN Date of Service: Jun 13, 2025 Billing Provider: SHI MUSA CNM [employer] Common Visit Codes: [id number] DISCH DAY >30MIN SHI MUSA CNM Jun 13, 2025 07:23
--- NOTE | 2025-06-13 07:23 | DVHPN2 ---
Progress Note Date Seen: Jun 13, 2025 Subjective Marsha is sitting high fowlers and baby girl on the R side in cross cradle upon entry to room. Patient states she has not gotten much sleep and is looking forward to being at home in her own bed SUBJECTIVE -Lochia minimal -Tolerating regular diet well. -Pain relieved with oral medication PRN -Ambulating and voiding well w/o feeling lightheaded or dizzy. -Had BM and is passing gas -Breast feeding. -Desires and requests to be discharged home today (06/13) vital signs Vital Sign Date Time Temp Pulse Resp B/P (MAP) Pulse Ox O2 Delivery O2 Flow Rate FiO2 06/13/25 06:35 Room Air 06/13/25 06:30 97.5 59 18 124/67 (86) 99 97.5 Total Intake and Output 06/12/25 06/12/25 06/13/25 15:00 23:00 07:00 Output Total 450 ml Balance -450 ml medications Current Medications Medications Dose Ordered Sig/Angie Route Start Time Stop Time Status Last Admin Dose Admin Rebeca Arnold 1 pad PRN PRN TOP 06/10/25 16:15 06/12/25 13:59 1 PAD Sodium Lauryl Sulfate 240 ml PRN PRN TOP 06/10/25 16:15 06/10/25 16:58 240 ML Benzocaine 1 applic PRN PRN TOP 06/10/25 16:15 06/10/25 16:58 1 APPLIC Acetaminophen 650 mg Q4HP PRN PO 06/11/25 21:00 06/12/25 05:44 650 MG Ondansetron HCl 4 mg Q4HP PRN IV 06/11/25 21:00 Docusate Sodium 200 mg HS PO 06/11/25 22:00 06/12/25 22:03 200 MG Ibuprofen 800 mg Q6HR PO 06/12/25 00:00 06/13/25 02:01 800 MG Cefazolin Sodium/ Dextrose 50 ml @ 50 mls/hr Q8HR IV 06/11/25 22:00 06/12/25 13:53 50 MLS/HR Psyllium Hydrophilic Mucilloid 1 pkg BID PO 06/12/25 21:00 06/12/25 22:04 1 PKG laboratory and microbiology Laboratory Tests 06/12/25 08:11 06/10/25 16:26 Test 06/10/25 16:26 Range/Units Serum Glucose 68 L 74-106 mg/dL Objective OBJECTIVE -A&O x4. No apparent distress. Affect appropriate -Afebrile, VSS -Chest: heart and lung sounds normal. -Breasts: Nipples intact w/o cracks or soreness -Abdomen: normal BS, soft, non-tender, no rebound or guarding, fundus firm @ U- 1, lochia minimal -Perineum:- no edema, or erythema, Incision site with sutures intact, edges in good approximation. -Extremities: no edema or tenderness Problems(with codes): (1) (normal spontaneous vaginal delivery) (2) Precipitous drop in hematocrit Assessment/Plan ASSESSMENT -29 yo now ppd #2 s/p doing well. -Blood Type: B+ -Breast feeding -Rubella Immune -4th degree perineal laceration PLAN -Continue pain management with oral medications as previously ordered -Increase fluid intake and fiber in diet to promote regular bowel movements, Laxative PRN -Encouraged patient to continue taking vitamin and iron -Discussed 4th degree laceration and ways to promote healing, including adequate fiber/hydration and sitz baths -Educated patient on self care and warning signs of PPH, PPD, and pre-eclampsia. Answered all pt questions and concerns -Continue routine care and anticipate discharge today Plan discussed with: Patient, Spouse, Other (family) Visit Coding OBGYN Date of Service: Jun 13, 2025 Billing Provider: SHI MUSA CNM CLIENT RESOLUTION SPECIALIST Common Visit Codes: [id number] INP/OBS CARE(MOD) SHI MUSA CNM Jun 13, 2025 07:23
== END 2025-06-13 11:18 | disposition home or self-care (01) | DRG 768 ==
LOC: LDRP 16:02
PROVIDERS: ADMIT Obstetrics & Gynecology; ATTEND Obstetrics & Gynecology
PROC: 0DQP0ZZ Repair Rectum, Open Approach (ICD-10-PCS; principal; 2025-06-11)
PROC: 10E0XZZ Delivery of Products of Conception, External Approach (ICD-10-PCS; 2025-06-11)
PROC: 0W8NXZZ Division of Female Perineum, External Approach (ICD-10-PCS; 2025-06-11)
PROC: 3E0R3BZ Introduction of Anesthetic Agent into Spinal Canal, Percutaneous Approach (ICD-10-PCS; 2025-06-11)
PROC: 00HU33Z Insertion of Infusion Device into Spinal Canal, Percutaneous Approach (ICD-10-PCS; 2025-06-11)
DX: O48.0 Post-term pregnancy (principal); Z37.0 Single live birth; O70.3 Fourth degree perineal laceration during delivery; O36.60X0 Maternal care for excessive fetal growth, unspecified trimester, not applicable or unspecified; O99.824 Streptococcus B carrier state complicating childbirth; Z3A.40 40 weeks gestation of pregnancy
CPT/HCPCS: 36415; 59025; 59200; 59409; 62282; 80053; 80307; 81001; 81002; 85025; 85610; 85730; 86780; 86803; 86850; 86900; 86901; 94760; 94762; 96360; 96361; 96365; 96366; 96375; G0378; J2405; J2540; J2590; J7060